=== PATIENT | male | born 1975 | race Caucasian/White ===

== ENCOUNTER 2016-12-23 09:58 | Inpatient (IN) | payer OTHER ==
[2016-12-23 10:46] VITALS: BMI 34.0
[2016-12-23] MEDS ORDERED: PEPCID 20 MG IV PREMIX* 20 MG/50 ML BAG IV SCH (11:00)
[2016-12-23] MEDS ORDERED: NS 500 ML IV 500 ML IV SCH (12:00)
[2016-12-23] MEDS ORDERED: NS 1000 ML 1,000 ML IV SCH (12:19)
[2016-12-23 12:56] LABS: BILIRUBIN,URINE NEGATIVE (NEGATIVE); BLOOD/HEMOGLOBIN,URINE 1+ (NEGATIVE); GLUCOSE, URINE NEGATIVE (NEGATIVE); KETONES,URINE NEGATIVE (NEGATIVE); LEUKOCYTE ESTERASE ,URINE NEGATIVE (NEGATIVE); NITRITES,URINE NEGATIVE (NEGATIVE); PROTEIN,URINE 1+ (NEGATIVE); UROBILINOGEN,URINE NORMAL (NORMAL)
[2016-12-23 12:57] LABS: BASOPHILS # (AUTO) 0.1 X10^3/uL (0.0-0.1); EOSINOPHILS # (AUTO) 0.1 x10^3/uL (0.0-0.2); EOSINOPHILS % (AUTO) 1.1 % (0.9-2.9); HEMATOCRIT 41.2 % (42.0-54.0); HEMOGLOBIN 13.9 g/dL (13.5-18.0); LYMPHOCYTES # (AUTO) 3.2 X10^3/uL (1.3-2.9); LYMPHOCYTES % (AUTO) 32.3 % (21.0-51.0); MEAN CORPUSCULAR HEMOGLOBIN 29.1 pg (27.0-34.0); MEAN CORPUSCULAR HGB CONC 33.7 g/dL (33.0-35.0); MEAN CORPUSCULAR VOLUME 86.4 fL (80.0-100.0); MONOCYTES % (AUTO) 10.1 % (0.0-13.0); NEUTROPHILS # (AUTO) 5.5 x10^3/uL (2.2-4.8); NEUTROPHILS % (AUTO) 55.5 % (42.0-75.0); PLATELET COUNT 209 X10^3/uL (150.0-450.0); RED BLOOD COUNT 4.77 X10^6/uL (4.7-6.0); RED CELL DISTRIBUTION WIDTH 14.4 % (11.6-16.5); WHITE BLOOD COUNT 9.9 X10^3/uL (3.6-10.0)
[2016-12-23 13:06] LABS: APPEARANCE,URINE CLEAR (CLEAR); BACTERIA,URINE TRACE /HPF (NEGATIVE); COLOR,URINE YELLOW (YELLOW); RBC,URINE 0-3 /HPF (NEGATIVE); SQUAMOUS EPITHELIAL CELL,UR RARE /HPF (NEGATIVE)
[2016-12-23 13:16] LABS: ALANINE AMINOTRANSFERASE 70 Units/L (12-78); ALBUMIN 3.5 g/dL (3.4-5.0); ALKALINE PHOSPHATASE 65 Units/L (46-116); ASPARTATE AMINO TRANSFERASE 19 Units/L (15-37); BLOOD UREA NITROGEN 27 mg/dL (7-18); CALCIUM 8.2 mg/dL (8.5-10.1); CARBON DIOXIDE 30.4 mmol/L (21-32); CHLORIDE 103 mmol/L (98-107); CKMB % 2.9 % (<4); CREATINE KINASE 34 Units/L (39-308); CREATINE KINASE MB < 1.0 ng/mL (0-4.0); CREATININE 1.08 mg/dL (0.70-1.30); GLUCOSE 86 mg/dL (65-99); SODIUM 140 mmol/L (136-145); TROPONIN I < 0.02 ng/mL (0-1.5); eGFR BLACK RACES > 60 (>60); eGFR NON BLACK RACES > 60 (>60)
[2016-12-23] MEDS ORDERED: SOLU-MEDROL 125 MG VIAL IVP SCH ×2 (14:00)
[2016-12-23] MEDS ORDERED: MORPHINE SULFATE INJ 2 MG IVP PRN (14:05)
[2016-12-23] MEDS ORDERED: NS 100 ML IV 100 ML IV ONE (14:19)
--- NOTE | 2016-12-23 15:54 | CT ---
HISTORY: Headache Study: CT brain without contrast Comparison: None Technique: Multiple axial images of the brain were obtained from the skull base to the vertex without administr ation of IV contrast. Dose reduction techniques including Automated Exposure Control (AEC) and adju stment of mA and kV were utilized. Findings: The brain parenchyma is within normal limits for patient's age. No evidence of acute hemorrhage, mi dline shift, mass effect or abnormal extra-axial fluid collection. The ventricular system is symmet kandi and nondilated. The soft tissues and osseous structures are unremarkable. The visualized parana ricardo sinuses are clear. IMPRESSION: 1.No acute intracranial abnormality. Reported By:
--- NOTE | 2016-12-23 16:01 | RAD ---
HISTORY: Angioedema Study: Single view chest Comparison: None Findings: The lungs are clear without consolidation, effusion or pneumothorax. The cardiac and mediastinal co ntours are within normal limits. The soft tissues are unremarkable. IMPRESSION: 1. No acute cardiopulmonary abnormality. Reported By:
--- NOTE | 2016-12-23 16:36 | CT ---
HISTORY: Neck swelling, recent angio edema Study: CT soft tissue neck with and without contrast Comparison: None Technique: Multiple axial images of the soft tissue neck were obtained from skull base to the aortic arch before and after the administration of IV contrast. Sagittal and coronal reformats were perfo rmed and reviewed. Dose reduction techniques including Automated Exposure Control (AEC) and adjustm ent of mA and kV were utilized. Findings: The visualized intracranial structures appear normal. The skull base and visualized cervical spine a re intact. The facial bones appear grossly intact. The visualized paranasal sinuses and mastoid air cells are clear. The visualized lung apices are clear. The aerodigestive structures appear normal. The prevertebral soft tissues and paraspinal soft tissue s are unremarkable. The epiglottis and laryngeal structures appear normal. No evidence of mass or ab scess. No pathologically enlarged lymph nodes are identified. No abnormal enhancement. The carotid, parotid, parapharyngeal, tractor engine mechanic, and retropharyngeal space s appear normal. The pharyngeal mucosal surfaces appear grossly normal. Normal appearance of the par otid and submandibular glands. The thyroid gland appears normal. IMPRESSION: Negative CT of the neck. No evidence of significant edema or airway stenosis. Reported By:
[2016-12-23] MEDS ORDERED: TYLENOL #3 TAB (W/CODEINE) PO PRN (17:03)
[2016-12-23] MEDS ORDERED: XYLOCAINE VISCOUS MT PRN (17:03)
[2016-12-23] MEDS ORDERED: ATARAX TAB 25 MG PO PRN (17:03)
[2016-12-23] MEDS ORDERED: KLONOPIN TAB 0.5 MG PO PRN (17:03)
[2016-12-23 17:46] LABS: FREE T4 (FREE THYROXINE) 1.05 ng/dL (0.76-1.46); TSH (3RD GENERATION) 1.756 uIU/mL (0.358-3.74)
[2016-12-23 18:38] LABS: CKMB % 2.9 % (<4); CREATINE KINASE 35 Units/L (39-308); CREATINE KINASE MB < 1.0 ng/mL (0-4.0); TROPONIN I < 0.02 ng/mL (0-1.5)
[2016-12-23] MEDS: DILAUDID INJ IVP PRN ×2 (19:41→22:58)
[2016-12-23] MEDS: PEPCID 20 MG IV PREMIX* 20 MG/50 ML BAG IV SCH (20:13)
[2016-12-23] MEDS: LIPITOR TAB 40 MG PO SCH (20:14)
[2016-12-23] MEDS: NYSTATIN SUSP PO SCH (20:14)
[2016-12-23] MEDS: BENADRYL INJ 50 MG VIAL IVP SCH (20:18)
[2016-12-23] MEDS: VISTARIL PO PRN (20:18)
[2016-12-23] MEDS ORDERED: FLONASE NASAL SPRAY ENOSTRIL SCH (21:00)
[2016-12-23] MEDS ORDERED: VIBRAMYCIN PO SCH (21:00)
[2016-12-23] MEDS ORDERED: BENADRYL INJ 50 MG VIAL IV SCH (21:00)
[2016-12-24 01:05] LABS: CKMB % 2.9 % (<4); CREATINE KINASE 34 Units/L (39-308); CREATINE KINASE MB < 1.0 ng/mL (0-4.0); TROPONIN I < 0.02 ng/mL (0-1.5)
[2016-12-24] MEDS: BENADRYL INJ 50 MG VIAL IVP SCH ×4 (02:20→22:01)
[2016-12-24] MEDS: DILAUDID INJ IVP PRN ×7 (02:20→22:01)
[2016-12-24] MEDS ORDERED: NS 1000 ML 1,000 ML ONE (05:29)
[2016-12-24 06:13] LABS: BASOPHILS % (AUTO) 0.1 % (0.2-1.0); HEMATOCRIT 40.5 % (42.0-54.0); HEMOGLOBIN 13.5 g/dL (13.5-18.0); LYMPHOCYTES # (AUTO) 1.2 X10^3/uL (1.3-2.9); LYMPHOCYTES % (AUTO) 11.1 % (21.0-51.0); MEAN CORPUSCULAR HEMOGLOBIN 29.2 pg (27.0-34.0); MEAN CORPUSCULAR HGB CONC 33.3 g/dL (33.0-35.0); MEAN CORPUSCULAR VOLUME 87.7 fL (80.0-100.0); MEAN PLATELET VOLUME 7.5 fL (7.4-11.0); MONOCYTES # (AUTO) 0.5 x10^3/uL (0.3-0.8); MONOCYTES % (AUTO) 4.4 % (0.0-13.0); NEUTROPHILS # (AUTO) 8.9 x10^3/uL (2.2-4.8); NEUTROPHILS % (AUTO) 84.4 % (42.0-75.0); PLATELET COUNT 202 X10^3/uL (150.0-450.0); RED BLOOD COUNT 4.62 X10^6/uL (4.7-6.0); RED CELL DISTRIBUTION WIDTH 14.3 % (11.6-16.5); WHITE BLOOD COUNT 10.5 X10^3/uL (3.6-10.0)
[2016-12-24 06:51] LABS: ALANINE AMINOTRANSFERASE 65 Units/L (12-78); ALBUMIN 3.2 g/dL (3.4-5.0); ALKALINE PHOSPHATASE 59 Units/L (46-116); ASPARTATE AMINO TRANSFERASE 14 Units/L (15-37); BLOOD UREA NITROGEN 22 mg/dL (7-18); CALCIUM 8.1 mg/dL (8.5-10.1); CARBON DIOXIDE 28.6 mmol/L (21-32); CHLORIDE 104 mmol/L (98-107); CHOL/HDL RATIO 3.4 (0.0-5.0); CHOLESTEROL 284 mg/dL (0-200); COR CA(FOR HYPOALB) 8.7 mg/dL (8.5-10.1); COR NA(FOR HYPERGLY) 139 mmol/L (136-145); CREATININE 1.07 mg/dL (0.70-1.30); GLUCOSE 124 mg/dL (65-99); HDL CHOLESTEROL 83 mg/dL (40-60); MAGNESIUM 2.3 mg/dL (1.7-2.9); SODIUM 138 mmol/L (136-145); TOTAL PROTEIN 6.7 g/dL (6.4-8.2); TRIGLYCERIDES 91 mg/dL (0-150); eGFR BLACK RACES > 60 (>60); eGFR NON BLACK RACES > 60 (>60)
--- NOTE | 2016-12-24 08:35 | DR.H&P ---
H&P - History & Physical for Day of: H&P Date: 12/22/16 - Chief Complaint Chief Complaint: Jaw swelling, trouble swallowing, ringing of ears, recent allergic reaction - Allergies Allergies/Adverse Reactions: Allergies Allergy/AdvReac Type Severity Reaction Status Date / Time Acetaminophen [From Fioricet] Allergy Verified 12/23/16 10:33 Butalbital [From Fioricet] Allergy Verified 12/23/16 10:33 Caffeine [From Fioricet] Allergy Verified 12/23/16 10:33 - History of Present Illness History of Present Illness: The patient is a 41-year-old white male who presents [facility] the [facility] secondary to having increased swelling to his child and neck. The patient states that he is having some trouble swallowing. Denies any rest or distress. Patient also complains of continued ringing in the ears. Patient had history of anaphylactic reaction to Fioricet last week. Patient did present to the emergency department in [place] and was giving IM prednisone and started on by mouth prednisone. Patient presented to the first care clinic on Tuesday with a mean of the ears and dizziness with headache. The patient was sent to Dr. Toth. Patient was told CT of sinuses were negative and regaining of the ears was from hearing loss. Patient has had progressive swelling to his jaw and neck despite being on prednisone. Headache is persistent to the left frontal sinus region. - Past Medical History Past Medical History: Anxiety, Depression, GERD, Hypertension - Past Surgical History Surgical History: Appendectomy Additional Surgical History: Colonoscopy w/ polyps.Colon resection secondary to mass. - Family History Family Medical History: Cancer, [place], Sudden Cardiac , Hypertension - Social History Does patient currently use any type of tobacco product: No Have you used tobacco products in the last 12 months: No Type of Tobacco Use: None How many years tobacco product used: 7 Does any household member use tobacco: No Alcohol Use: Occasionally Drug Use: None - Medications Home Medications: Acetaminophen/Codeine Tab [TYLENOL w/CODEINE #3 (300 MG/30 MG) *] 1 tab PO TID PRN 12/23/16 [History Confirmed 12/23/16] Atorvastatin Calcium [LIPITOR Tab 40 mg *] 40 mg PO .EVENING 12/23/16 [History Confirmed 12/23/16] Cetirizine HCl [Zyrtec Allergy] 10 mg PO DAILY 12/23/16 [History Confirmed 12/23] Citalopram 20 mg Tab [CELEXA 20 MG *] 40 mg PO DAILY 12/23/16 [History Confirmed 12/23/16] Clonazepam [Klonopin Tab 0.5 mg] 0.5 - 1 tab PO DAILY PRN 12/23/16 [History Confirmed 12/23/16] Doxycycline Hyclate 100 mg PO BID 12/23/16 [History Confirmed 12/23/16] Fluoxetine HCl [FLUOXETINE 10 MG *] 10 mg PO DAILY 12/23/16 [History Confirmed 12/23/16] Fluticasone Nasal [place] [FLONASE NASAL SPRAY *] 1 spray ENOSTRIL BID 12/23/16 [ History Confirmed 12/23/16] Hydroxyzine HCl 25 mg Tab [ATARAX *] 50 mg PO TID PRN 12/23/16 [History Confirmed 12/23/16] Hydroxyzine Pamoate 1 tab PO HS PRN 12/23/16 [History Confirmed 12/23/16] Lidocaine HCl (Mouth-Throat) [Lidocaine HCl Viscous] 5 ml PO Q3H PRN 12/23/16 [ History Confirmed 12/23/16] Nystatin Susp [NYSTATIN ORAL SUSP *] 10 ml PO QID 12/23/16 [History Confirmed ] Omeprazole [PRILOSEC 20 MG *] 40 mg PO DAILY 12/23/16 [History Confirmed ] - Review of Systems Constitutional: Weakness, Malaise Eyes: No Symptoms Reported ENT: No Symptoms Reported Respiratory: No Symptoms Reported Cardiovascular: No Symptoms Reported Gastrointestinal: No Symptoms Reported Genitourinary: No Symptoms Reported Musculoskeletal: No Symptoms Reported Skin: No Symptoms Reported Neurological: No Symptoms Reported - Physical Exam Vital Signs: Temperature 98.2 F Pulse Rate [Right Radial] 74 Respiratory Rate 15 Blood Pressure [Right Arm] 147/73 O2 Sat by Pulse Oximetry 95 Oriented: Normal Eyes: Normal Ear: Normal Nose: Normal Throat: Normal, Other (has edema to jawline and neck) Respiratory: Clear Throughout Cardiovascular: Normal : Normal Auscultation: Bowel Sounds: Normal Palpation: Normal Tenderness: Normal Skin: Normal Musculoskeletal: Normal Psychiatric: Normal Mood Description: Calm Affect: Quiet Speech Pattern: Clear - Assessment/Plan (1) Headache Qualifiers: Headache type: primary stabbing headache Headache chronicity pattern: H Intractability: I Qualified Code(s): G44.85 - Primary stabbing headache Status: Acute Plan: CT Head, Morphine (2) Tinnitus Qualifiers: Laterality: L Status: Acute Plan: IV Steriod (3) Angioedema Qualifiers: Encounter type: E Status: Acute Plan: IV Steriods, CT Neck, Labs
[2016-12-24] MEDS ORDERED: NS 100 ML IV 100 ML IV ONE (08:48)
[2016-12-24] MEDS ORDERED: PROZAC PO SCH (09:00)
--- NOTE | 2016-12-24 09:57 | MRI ---
HISTORY: Intractable headache , neck pain common dizziness, ringing in ears for 6 weeks. Study: Noncontrast MRI of the brain Comparison: Technique: Multiplanar multi-sequence MRI of the brain was obtained utilizing standard departmental protocol. Sagittal and axial T1 weighted images were obtained. Axial T2 and flair weighted images were performed as well. Axial diffusion weighted and ADC trace mapping was performed. Findings: The midline structures appear unremarkable. The evaluation of the brain parenchyma demonstrates no abnormal signal characteristics to suggest intraparenchymal mass or hemorrhage. No extra-axial flui d collections are observed. The ventricular system appears symmetric and nondilated. The CP angle is normal in its appearance without brainstem mass or evidence for acoustic neuroma. The flow void s on both T1 and T2 weighted imaging appear unremarkable. Evaluation of the diffusion weighted imag ing does not demonstrate abnormal signal characteristics to suggest acute ischemic change. The extr acranial structures are unremarkable. IMPRESSION: 1. Unremarkable MRI of the brain without contrast. Reported By:
--- NOTE | 2016-12-24 10:10 | MRI ---
HISTORY: Dizziness common neck pain, intractable headaches Study: Noncontrast MRI of the cervical spine Comparison: No prior cervical MRI evaluations available for comparison. Technique: Multiplanar multisequence MRI of the cervical spine was obtained utilizing standard depar tmental protocol. Findings: Alignment of the cervical spine is maintained. No abnormal signal characteristics of the bone marro w can be identified. No evidence for fracture or significant bone or edema can be seen. The surrou nding soft tissues are unremarkable. The central canal appears widely patent and normal signal rebel acteristics of the spinal cord are noted. C2 -- C3: Unremarkable C3 -- C4: Unremarkable C4 -- C5: Small left paracentral disc disc protrusion is present without cord effacement or nerve ro ot impingement. C5 -- C6: Small right paracentral disc protrusion is present without cord effacement or nerve root i mpingement C6 -- C7: Unremarkable C7 -- T1: Unremarkable IMPRESSION: Small bilateral disc protrusions as described above. These are both without cord effacement or nerve root impingement. No central spinal stenosis is seen at any level. Reported By:
--- NOTE | 2016-12-24 10:19 | CT ---
HISTORY: Angioedema common dizziness Study: Cervical carotid CTA Comparison: Soft tissue cervical CT done December 23, 2016 Technique: axial acquisition was performed prior to and during IV contrast material administration. In addition to standard multi planer reconstructions, volume 3 surface renderings are performed in a rotating format. Findings: There is a less than optimal arterial bolus achieved there is considerable venous contamination. The carotid arteries are opacified and best seen on the axial source images. No evidence of significant stenosis or occlusion is seen. Carotid opacification was achieved to the level of the osage [place] . IMPRESSION: No evidence of carotid stenosis or occlusion. Examination is less than optimal with considerable lanette ous contamination seen. Reported By:
[2016-12-24] MEDS: CELEXA PO SCH (11:01)
[2016-12-24] MEDS: NYSTATIN SUSP PO SCH ×4 (11:01→21:59)
[2016-12-24] MEDS: ZYRTEC TAB 10 MG PO SCH (11:02)
[2016-12-24] MEDS: PEPCID 20 MG IV PREMIX* 20 MG/50 ML BAG IV SCH ×2 (11:02→21:05)
[2016-12-24] MEDS: PRILOSEC PO SCH (11:03)
[2016-12-24] MEDS: NS 500 ML IV 500 ML IV SCH (14:00)
--- NOTE | 2016-12-24 15:27 | PCM.PROG ---
Progress Note - Progress Note for Day of Date: 12/24/16 - Subjective Subjective: pt continues to co severe gunter and bilateral jaw pain, reviewed labs and diagnoistic tests with pt. - Past Medical Family Social History Past Med/Fam/Surg Hx: No changes since H&P Allergies: Allergies Acetaminophen [From Fioricet] Allergy (Verified 12/23/16 10:33) Butalbital [From Fioricet] Allergy (Verified 12/23/16 10:33) Caffeine [From Fioricet] Allergy (Verified 12/23/16 10:33) - Review of Systems ROS: No change since H&P - Vital Signs and I&O's Vital Signs: Temperature 98.9 F Pulse Rate [Right Radial] 73 Respiratory Rate 15 Blood Pressure [Right Arm] 144/80 O2 Sat by Pulse Oximetry 100 Intake and Output: Intake & Output 12/22/16 12/23/16 12/24/16 12/25/16 11:59 11:59 11:59 11:59 Intake Total 1488 Output Total 760 Balance 728 - Physical Exam Oriented: Normal Eyes: Normal Ear: Normal Nose: Normal Throat: Normal, Other (has edema to jawline and neck) Cardiovascular: Normal : Normal Auscultation: Bowel Sounds: Normal Tenderness: Normal Skin: Normal Musculoskeletal: Normal Psychiatric: Normal Mood Description: Calm Affect: Quiet Speech Pattern: Clear - Laboratory and Diagnostics Result Diagrams: 12/24/16 04:40 12/24/16 04:40 Labs: Laboratory WBC 10.5 X10^3/uL (3.6-10.0) H 12/24/16 04:40 RBC 4.62 X10^6/uL (4.7-6.0) L 12/24/16 04:40 Hgb 13.5 g/dL (13.5-18.0) 12/24/16 04:40 Hct 40.5 % (42.0-54.0) L 12/24/16 04:40 MCV 87.7 fL (80.0-100.0) 12/24/16 04:40 MCH 29.2 pg (27.0-34.0) 12/24/16 04:40 MCHC 33.3 g/dL (33.0-35.0) 12/24/16 04:40 RDW 14.3 % (11.6-16.5) 12/24/16 04:40 Plt Count 202 X10^3/uL (150.0-450.0) 12/24/16 04:40 MPV 7.5 fL (7.4-11.0) 12/24/16 04:40 Neut % 84.4 % (42.0-75.0) H 12/24/16 04:40 Lymph % 11.1 % (21.0-51.0) L 12/24/16 04:40 [place] % 4.4 % (0.0-13.0) 12/24/16 04:40 Eos % 0.0 % (0.9-2.9) L 12/24/16 04:40 Baso % 0.1 % (0.2-1.0) L 12/24/16 04:40 Neut # 8.9 x10^3/uL (2.2-4.8) H 12/24/16 04:40 Lymph # 1.2 X10^3/uL (1.3-2.9) L 12/24/16 04:40 [place] # 0.5 x10^3/uL (0.3-0.8) 12/24/16 04:40 Eos # 0.0 x10^3/uL (0.0-0.2) 12/24/16 04:40 Baso # 0.0 X10^3/uL (0.0-0.1) 12/24/16 04:40 Absolute Nucleated RBC 0.0 /100WBC 12/24/16 04:40 ESR 5 MM/HOUR (0-15) 12/23/16 12:35 Sodium 138 mmol/L (136-145) 12/24/16 04:40 Corrected Sodium 139 mmol/L (136-145) 12/24/16 04:40 Potassium 4.7 mmol/L (3.5-5.1) 12/24/16 04:40 Chloride 104 mmol/L (98-107) 12/24/16 04:40 Carbon Dioxide 28.6 mmol/L (21-32) 12/24/16 04:40 BUN 22 mg/dL (7-18) H 12/24/16 04:40 Creatinine 1.07 mg/dL (0.70-1.30) 12/24/16 04:40 Est GFR (MDRD) Af Amer > 60 (>60) 12/24/16 04:40 Est GFR (MDRD) Non-Af > 60 (>60) 12/24/16 04:40 Glucose 124 mg/dL (65-99) H 12/24/16 04:40 Calcium 8.1 mg/dL (8.5-10.1) L 12/24/16 04:40 Corrected Calcium 8.7 mg/dL (8.5-10.1) 12/24/16 04:40 Magnesium 2.3 mg/dL (1.7-2.9) 12/24/16 04:40 Total Bilirubin 0.30 mg/dL (0.2-1.0) 12/24/16 04:40 AST 14 Units/L (15-37) L 12/24/16 04:40 ALT 65 Units/L (12-78) 12/24/16 04:40 Alkaline Phosphatase 59 Units/L (46-116) 12/24/16 04:40 Creatine Kinase 34 Units/L (39-308) L 12/24/16 00:30 CK-MB (CK-2) < 1.0 ng/mL (0-4.0) 12/24/16 00:30 CK/CKMB % Calc 2.9 % (<4) 12/24/16 00:30 Troponin I < 0.02 ng/mL (0-1.5) 12/24/16 00:30 C-Reactive Protein 0.80 mg/L (0-3.0) 12/23/16 12:35 Total Protein 6.7 g/dL (6.4-8.2) 12/24/16 04:40 Albumin 3.2 g/dL (3.4-5.0) L 12/24/16 04:40 Globulin 3.5 g/dL (2.5-4.5) 12/24/16 04:40 Albumin/Globulin Ratio 0.9 Ratio (1.1-2.1) L 12/24/16 04:40 Triglycerides 91 mg/dL (0-150) 12/24/16 04:40 Cholesterol 284 mg/dL (0-200) H 12/24/16 04:40 LDL Cholesterol, Calc 183 mg/dL (0-100) H 12/24/16 04:40 HDL Cholesterol 83 mg/dL (40-60) H 12/24/16 04:40 Cholesterol/HDL Ratio 3.4 (0.0-5.0) 12/24/16 04:40 Free T4 1.05 ng/dL (0.76-1.46) 12/23/16 12:35 TSH 3rd Generation 1.756 uIU/mL (0.358-3.74) 12/23/16 12:35 Specimen Type Clean catch urine 12/23/16 12:34 Urine Color Yellow (YELLOW) 12/23/16 12:34 Urine Appearance Clear (CLEAR) 12/23/16 12:34 Urine pH 5.0 (5.0 - 8.0) 12/23/16 12:34 Ur Specific [place] 1.025 (1.000-1.030) 12/23/16 12:34 Urine Protein 1+ (NEGATIVE) 12/23/16 12:34 Urine Glucose (UA) Negative (NEGATIVE) 12/23/16 12:34 Urine Ketones Negative (NEGATIVE) 12/23/16 12:34 Urine Occult Blood 1+ (NEGATIVE) 12/23/16 12:34 Urine Nitrite Negative (NEGATIVE) 12/23/16 12:34 Urine Bilirubin Negative (NEGATIVE) 12/23/16 12:34 Urine Urobilinogen Normal (NORMAL) 12/23/16 12:34 Ur Leukocyte Esterase Negative (NEGATIVE) 12/23/16 12:34 Urine RBC 0-3 /HPF (NEGATIVE) 12/23/16 12:34 Urine WBC 0-3 /HPF (NEGATIVE) 12/23/16 12:34 Ur Squamous Epith Cells Rare /HPF (NEGATIVE) 12/23/16 12:34 Urine Bacteria Trace /HPF (NEGATIVE) 12/23/16 12:34 Ur Culture Indicated? No/not indicated 12/23/16 12:34 - Plan (1) TMJ (temporomandibular joint syndrome) Status: Acute Plan: continue pain control, steroids. toradol (2) Angioedema Status: Acute Qualifiers: Encounter type: E Plan: IV Steriods, reviewed xray findings, stable, will continue to monitor (3) Headache Status: Acute Qualifiers: Headache type: primary stabbing headache Headache chronicity pattern: H Intractability: I Qualified Code(s): G44.85 - Primary stabbing headache Plan: CT Head,mri brain stable. Morphine, norco (4) Tinnitus Status: Acute Qualifiers: Laterality: L Plan: IV Steriod (5) GERD (gastroesophageal reflux disease) Status: Chronic Qualifiers: Esophagitis presence: E (6) HTN (hypertension) Status: Chronic Qualifiers: Hypertension type: H
[2016-12-24] MEDS: NORCO 10/325 TAB PO PRN (16:13)
[2016-12-24] MEDS: NEURONTIN CAP 300 MG PO SCH ×2 (16:14→22:00)
[2016-12-24] MEDS: TORADOL 30 MG VIAL IVP PRN (16:15)
[2016-12-24] MEDS: LIPITOR TAB 40 MG PO SCH (21:59)
[2016-12-24] MEDS: VISTARIL PO PRN (22:00)
[2016-12-25] MEDS: BENADRYL INJ 50 MG VIAL IVP SCH ×2 (01:55→03:39)
[2016-12-25] MEDS: DILAUDID INJ IVP PRN ×5 (02:10→19:21)
[2016-12-25] MEDS: NEURONTIN CAP 300 MG PO SCH ×3 (05:13→22:00)
[2016-12-25] MEDS: TORADOL 30 MG VIAL IVP PRN ×2 (05:14→14:10)
[2016-12-25] MEDS: NS 500 ML IV 500 ML IV SCH ×2 (05:18→12:58)
[2016-12-25] MEDS: CELEXA PO SCH (09:07)
[2016-12-25] MEDS: ZYRTEC TAB 10 MG PO SCH (09:08)
[2016-12-25] MEDS: PEPCID 20 MG IV PREMIX* 20 MG/50 ML BAG IV SCH ×2 (09:08→20:31)
[2016-12-25] MEDS: PRILOSEC PO SCH (09:08)
[2016-12-25] MEDS: NYSTATIN SUSP PO SCH ×4 (09:08→20:32)
[2016-12-25] MEDS: NORCO 10/325 TAB PO PRN ×2 (09:12→16:00)
[2016-12-25] MEDS: LIPITOR TAB 40 MG PO SCH (20:31)
[2016-12-25 20:37] VITALS: BP 128/80
== END 2016-12-25 22:06 | disposition home or self-care (01) | DRG 916 ==
LOC: ICU 09:58
PROVIDERS: ADMIT Internal Medicine; ATTEND Internal Medicine
DX: T78.3XXA Angioneurotic edema, initial encounter (principal); G44.85 Primary stabbing headache; R68.84 Jaw pain; M26.69 Other specified disorders of temporomandibular joint; F32.89 Other specified depressive episodes; K21.9 Gastro-esophageal reflux disease without esophagitis; I10 Essential (primary) hypertension; F41.8 Other specified anxiety disorders; M77.8 Other enthesopathies, not elsewhere classified; H93.13 Tinnitus, bilateral
CPT/HCPCS: 36415; 70450; 70492; 70498; 70551; 71010; 72141; 80053; 80061; 81001; 82550; 82553; 83735; 84439; 84443; 84484; 85025; 85652; 86140; 87040; A4222; Q0177; S0028; J1170; J1200; J1885; J2270; J2930